=== PATIENT | female | born 1935 | race Hispanic/Latino ===

== ENCOUNTER 2017-12-21 11:12 | Emergency (ER) | payer OTHER, MEDICARE ==
[2017-12-21] MEDS ORDERED: ACETAMINOPHEN EXTRA STRENGTH 500 MG TABLET ONE (11:27)
== END 2017-12-21 12:47 | disposition home or self-care (01) ==
LOC: EDH 11:12
DX: S76.011A Strain of muscle, fascia and tendon of right hip, initial encounter (principal); E11.9 Type 2 diabetes mellitus without complications; X58.XXXA Exposure to other specified factors, initial encounter; Y93.89 Activity, other specified; Y92.89 Other specified places as the place of occurrence of the external cause; Y99.8 Other external cause status
CPT/HCPCS: 73521

== ENCOUNTER 2017-12-27 13:22 | Emergency (ER) | payer OTHER, MEDICARE ==
[2017-12-27] MEDS ORDERED: ACETAMINOPHEN-CODEINE 300/30MG TAB ONE (14:31)
[2017-12-27] MEDS ORDERED: KETOROLAC TROMETHAMINE 30MG/ML ONE (14:31)
== END 2017-12-27 16:05 | disposition home or self-care (01) ==
LOC: EDH 13:22
DX: S70.01XA Contusion of right hip, initial encounter (principal); M25.561 Pain in right knee; E11.9 Type 2 diabetes mellitus without complications; W18.39XA Other fall on same level, initial encounter; Y93.01 Activity, walking, marching and hiking; Y92.89 Other specified places as the place of occurrence of the external cause; Y99.8 Other external cause status
CPT/HCPCS: 73502; 73562; 96372; 99284; J1885

== ENCOUNTER → 2019-04-22 | Outpatient (CLI) | payer MEDICARE | END | disposition home or self-care (01) | LOC: RAH 13:40 | PROVIDERS: ATTEND Family Medicine | DX: N64.4 Mastodynia (principal) | CPT/HCPCS: 77066 ==